=== PATIENT | male | born 1980 | race Caucasian/White ===

== ENCOUNTER 2017-10-02 07:43 | Day surgery (SDC) | payer BC ==
[~2017-10-02] VITALS: Ht 182.9 cm; Wt 87.1 kg
--- NOTE | ~2017-10-02 | OP ---
PATIENT NAME: KAYLIN WALKER MEDICAL RECORD: [id number] :76 LOCATION:[facility] ADMISSION DATE: SURGEON: ZAN WANG MD DATE OF OPERATION: 10/02/2017 PREOPERATIVE DIAGNOSES: 1. Right inguinal hernia. 2. Umbilical hernia. 3. Anxiety. 4. Hypertension. 5. Seizure disorders. POSTOPERATIVE DIAGNOSES: 1. Right inguinal hernia. 2. Umbilical hernia. 3. Anxiety. 4. Hypertension. 5. Seizure disorders. PROCEDURES: 1. Right inguinal hernia repair with medium PHS mesh. 2. Umbilical hernia repair without mesh. SURGEON: Zan Wang MD REPORT OF PROCEDURE: The patient's abdomen was prepped and draped in sterile fashion. A semicircular incision was made on the inferior aspect of the umbilicus. Electrocautery was used to dissect through the subcutaneous tissues and under the umbilical stalk. The patient had a small hernia defect. The hernia sac was released all the way down to the fascial edges. The hernia defect was little over a centimeter in greatest diameter. I freed up all the fascia on top and bottom and then reapproximated the fascial edges transversely using interrupted 0 Prolenes times 3. The Prolene sutures were tacked down to the fascia using interrupted 3-0 Vicryls. The umbilicus was then tacked down to the fascia using a single interrupted 3-0 Vicryl. We reapproximated the subcutaneous tissues with interrupted 3-0 Vicryls, and the skin was closed with running subcutaneous 5-0 Monocryl. We then approached the right groin. An oblique incision was made above the inguinal ligament. Electrocautery was used to dissect through the subcutaneous tissues to the external oblique fascia. This fascia was opened up to the external ring using electrocautery. The spermatic cord was elevated and a Nicolasa was placed around. The ilioinguinal nerve was found and high ligated. The hernia sac was dissected free from the spermatic cord and was high ligated. The patient not only had this indirect hernia defect, but also had a laxity to the floor consistent with an early direct hernia defect. The floor was opened up, and the preperitoneal space of Retzius was freed up in all directions. A medium PHS mesh was inserted and this was sutured down on all sides using interrupted 0 Vicryls. The wound was then irrigated out with normal saline. Care was taken to assure there was no sign of any active bleeding. The external oblique fascia was closed with running 2-0 Vicryl, Margie's was closed with interrupted 3-0 Vicryls, and the skin was closed with running subcutaneous 5-0 Monocryl. A total of 10 mL of 0.25% Marcaine plain was infused into the surrounding tissues of the 2 wounds, and the wounds were dressed appropriately. COMPLICATIONS: None. OPERATIVE REPORT [id number] KAYLIN WALKER CONDITION: Stable. ANESTHESIA: General endotracheal and local. BLOOD LOSS: Minimal. TRANSINT:[id number] Voice Confirmation ID: [id number] DOCUMENT ID: [id number] ZAN WANG MD at 1144 CC: SANDRA VARGAS DO [id number] DICTATION DATE: 10/02/17 1154 [employer] BU[employer]DER: 10/02/[address] [facility] 10/02/17 [id number] [place] [address]
[~2017-10-02 07:43] MED LIST: KEPPRA500 MG PO; LISINOP/HCTZ TAB 20- PO; OXYCONTIN10 MG PO; XANAX0.5 MG PO
[2017-10-02 08:53] LABS: BASOPHILS 0.3 % (0-2); EOSINOPHILS 0.6 % (0-7); HEMATOCRIT 43.8 % (42.0-54.0); HEMOGLOBIN 16.2 g/dL (13.5-17.5); IMMATURE GRANULOCYTES 0.3 % (0-5); LYMPHOCYTES 19.8 % (15-50); MEAN PLATELET VOLUME 9.5 fL (7.4-10.4); MONOCYTES 9.3 % (2-11); NEUTROPHILS 69.7 % (40-80); PLATELET COUNT 267 10x3/uL (130-400); RBC 4.76 10x6/uL (4.20-6.10); RDW 11.7 % (11.5-14.5); WBC 9.8 10x3/uL (4.8-10.8)
[2017-10-02 09:01] LABS: CALC OSMOLALITY 270 mosm/kg (275-300); CALCIUM 9.1 mg/dL (8.5-10.1); CARBON DIOXIDE 31.1 mmol/L (21.0-32.0); CHLORIDE - SERUM 97 mmol/L (98-107); CREATININE - SERUM 0.9 mg/dL (0.6-1.3); GLUCOSE 100 mg/dL (74-106); POTASSIUM - SERUM 3.4 mmol/L (3.5-5.1); SODIUM 136 mmol/L (136-145); UREA NITROGEN 9 mg/dL (7-18); eGFR NON AFRICAN AMERICAN > 90 mL/min (90-120)
[2017-10-02 09:12] VITALS: BP 124/74; Ht 182.9 cm; Wt 87.1 kg
[2017-10-02] MEDS ORDERED: HYDROCODONE-APA1 TAB PO (11:50)
== END 2017-10-02 13:50 | disposition home or self-care (01) ==
LOC: D.OPS 07:43
PROVIDERS: Surgery
DX: K40.90 Unilateral inguinal hernia, without obstruction or gangrene, not specified as recurrent (principal); K42.9 Umbilical hernia without obstruction or gangrene; F41.9 Anxiety disorder, unspecified; I10 Essential (primary) hypertension; G40.909 Epilepsy, unspecified, not intractable, without status epilepticus; Z01.812 Encounter for preprocedural laboratory examination